=== PATIENT | male | born 1990 | race Two or more races ===

== ENCOUNTER 2022-09-03 15:16 | Inpatient (IN) | payer OTHER ==
[~2022-09-03] VITALS: Ht 180.3 cm; Wt 86.2 kg
[2022-09-03] MEDS ORDERED: ONDANSETRON ODT 4 MG TAB PO ONE (16:45)
[2022-09-03] MEDS ORDERED: ONDANSETRON HCL 4 MG/2 ML VIAL IV PRN (17:00)
[2022-09-03 17:29] LABS: Basophils # (auto) 0.1 10 ^3/uL (0-0.2); Basophils % (auto) 0.8 % (0.0-2.0); Eosinophils # (auto) 0.1 10 ^3/uL (0-0.8); Eosinophils % (auto) 0.9 % (0.0-7.0); Hemoglobin 14.8 g/dL (13.5-17.5); Lymphocytes # (auto) 1.7 10 ^3/uL (0.4-5.4); Lymphocytes % (auto) 18.2 % (10.0-50.0); Mean Corpuscular Hemoglobin 31.2 pg (28.0-32.0); Mean Corpuscular Hgb Conc. 35.2 g/dL (32.0-36.0); Mean Corpuscular Volume 88.6 fL (80.0-100.0); Monocytes # (auto) 0.6 10 ^3/uL (0-1.3); Monocytes % (auto) 6.5 % (0.0-12.0); Neutrophils % (auto) 73.6 % (37.0-80.0); Red Blood Cells 4.74 10^6/uL (4.5-5.90); Red Cell Distribution Width 13.3 % (11.8-14.3); White Blood Cell 9.5 10^3/uL (4.4-10.8)
[2022-09-03 17:44] LABS: INR 0.97 (0.9-1.15); Partial Thromboplastin Time 27.7 sec (24.6-33.4)
[2022-09-03 17:47] LABS: Anion Gap 6 (5-15); BUN/Creatinine Ratio 10.2; Blood Urea Nitrogen 10 mg/dL (7-18); Calcium 9.4 mg/dL (8.5-10.1); Carbon Dioxide 27 mmol/L (21-32); Chloride 108 mmol/L (98-107); GFR African American 113 mL/min; GFR Non-African American 94 mL/min; Glucose 111 mg/dL (74-106); Sodium 141 mmol/L (136-145)
[2022-09-03 17:50] LABS: Alanine Aminotransferase 23 U/L (16-61); Alkaline Phosphatase 68 U/L (45-117); Aspartate Aminotransferase 24 U/L (15-37); Bilirubin, Total 0.6 mg/dL (0.2-1.0); Total Protein 7.6 g/dL (6.4-8.2)
[2022-09-04] VITALS (7 sets, daily range): BP systolic 99–123; BP diastolic 58–79
[2022-09-04] MEDS: ACETAMINOPHEN 325 MG TAB PO PRN ×2 (01:46→08:39)
[2022-09-04] MEDS: NAPROXEN 500 MG TAB PO PRN ×3 (03:10→20:06)
[2022-09-04] MEDS ORDERED: VENL1TAB96 PO (06:13)
[2022-09-04] MEDS ORDERED: ARIP2TAB PO ×2 (06:13→08:16)
[2022-09-04] MEDS ORDERED: VENL75CA3 PO (08:16)
[2022-09-05 05:00] VITALS: BP 101/59
[2022-09-05 09:00] VITALS: BP 141/69
[2022-09-05] MEDS: ACETAMINOPHEN 325 MG TAB PO PRN ×2 (09:28→15:51)
[2022-09-05] MEDS: VENLAFAXINE HCL 37.5mg XR cap PO SCH (09:29)
[2022-09-05] MEDS: OLANZapine 5 MG TAB PO SCH (09:30)
[2022-09-05 12:55] VITALS: BP 108/61
[2022-09-05 17:00] VITALS: BP 95/56
[2022-09-05 20:00] VITALS: BP 99/52
[2022-09-05 22:00] VITALS: BP 99/52
[2022-09-06 05:00] VITALS: BP 100/48
[2022-09-06 06:29] LABS: Albumin 3.3 g/dL (3.4-5.0); BUN/Creatinine Ratio 17.3; Bilirubin, Total 0.2 mg/dL (0.2-1.0); Calcium 8.7 mg/dL (8.5-10.1); Potassium 4.9 mmol/L (3.5-5.1); Total Protein 6.6 g/dL (6.4-8.2)
[2022-09-06 07:03] LABS: Basophils # (auto) 0 10 ^3/uL (0-0.2); Basophils % (auto) 0.3 % (0.0-2.0); Eosinophils # (auto) 0.3 10 ^3/uL (0-0.8); Eosinophils % (auto) 3.9 % (0.0-7.0); Hematocrit 41.9 % (41.0-53.0); Hemoglobin 14.1 g/dL (13.5-17.5); Lymphocytes % (auto) 26.6 % (10.0-50.0); Mean Corpuscular Hemoglobin 30.2 pg (28.0-32.0); Mean Corpuscular Hgb Conc. 33.8 g/dL (32.0-36.0); Mean Corpuscular Volume 89.4 fL (80.0-100.0); Monocytes # (auto) 0.4 10 ^3/uL (0-1.3); Monocytes % (auto) 5.9 % (0.0-12.0); Neutrophils # (auto) 4.7 10 ^3/uL (1.6-8.6); Neutrophils % (auto) 63.3 % (37.0-80.0); Nucleated Red Blood Cells % 0.1 %; Red Blood Cells 4.69 10^6/uL (4.5-5.90); Red Cell Distribution Width 13.3 % (11.8-14.3); White Blood Cell 7.4 10^3/uL (4.4-10.8)
[2022-09-06] MEDS: OLANZapine 5 MG TAB PO SCH (09:04)
[2022-09-06] MEDS: VENLAFAXINE HCL 37.5mg XR cap PO SCH (09:04)
[2022-09-06] MEDS: NAPROXEN 500 MG TAB PO PRN (09:05)
[2022-09-06] MEDS ORDERED: ENOXAPARIN SOD 40 MG/0.4 ML SYRINGE SC SCH (10:00)
[2022-09-06 12:01] LABS: Hepatitis C Antibody Positive (Negative)
[2022-09-06 12:17] VITALS: BP 107/55
[2022-09-06 16:15] VITALS: BP 107/59
[2022-09-06 18:29] VITALS: BP 107/59
== END 2022-09-06 21:30 | DRG 155 ==
LOC: ER 15:20 → EEVIPCON 15:20 → OVERFLOW 16:55 → CENTRAL 09-04 05:05 → TELE-CENTR 09-04 05:07
PROVIDERS: ADMIT Internal Medicine; ATTEND Internal Medicine
DX: S02.2XXA Fracture of nasal bones, initial encounter for closed fracture (principal); S06.0XAA Concussion with loss of consciousness status unknown, initial encounter; F20.9 Schizophrenia, unspecified; R00.1 Bradycardia, unspecified; Z20.822 Contact with and (suspected) exposure to COVID-19; S06.0X0A Concussion without loss of consciousness, initial encounter; X58.XXXA Exposure to other specified factors, initial encounter; F32.A Depression, unspecified; B19.20 Unspecified viral hepatitis C without hepatic coma; Z91.030 Bee allergy status; Z80.9 Family history of malignant neoplasm, unspecified; Y93.89 Activity, other specified; Y92.89 Other specified places as the place of occurrence of the external cause; Y99.8 Other external cause status
CPT/HCPCS: 36415; 70450; 70486; 70551; 72125; 80053; 85025; 85610; 85730; 86803; 87340; 87426; 93005; 96374; G0378; J2405; Q0162